=== PATIENT | female | born 1950 | race Two or more races ===

== ENCOUNTER 2021-03-23 09:38 | Inpatient (IN) | payer OTHER ==
[~2021-03-23] VITALS: Ht 157.5 cm; Wt 68.5 kg
--- NOTE | 2021-03-23 09:41 | NUR ---
CODE STROKE ACTIVATED
--- NOTE | 2021-03-23 09:42 | NUR ---
[id number] FRM HOME, FOUND ALTERED BY FRIEND AT 0830. LKW 1930 YESTERDAY WHEN SHE CALLED A FRIEND THATS STATES "SOUNDS NORMAL" BG RIVET HEATER GAS 96. THE PATIENT IS AO X0. RESPIRATION REGULAR AND UNLABORED. ATTACHED TO THE MONITOR.
[2021-03-23] MEDS ORDERED: DEXTROSE 50%-WATER 50 ML DISP.SYRIN ONE ×3 (09:43→20:20)
--- NOTE | 2021-03-23 09:45 | NUR ---
D50 IVP GIVEN AWARE.
[2021-03-23] MEDS ORDERED: DEXTROSE 50%-WATER 50 ML DISP.SYRIN IVP ONE (10:00)
--- NOTE | 2021-03-23 10:07 | NUR ---
accucheck reading is 176
--- NOTE | 2021-03-23 10:13 | NUR ---
PHELBATOMIST AT THE BEDSIDE
--- NOTE | 2021-03-23 10:19 | NUR ---
MADE DR GUAMAN AWARE DR ENRIQUEZ`S RECOMMENDATION TO GIVEN THIAMINE 250 MG IV ONCE, HOWEVER, DR GUAMAN STATED THAT THERE IS NO NEED TO GIVE THIAMINE
--- NOTE | 2021-03-23 10:22 | NUR ---
THE PATIENT IS ALERT AND ORIENTED X1. VERBALLY RESPONSIVE. DENIES PAIN. IN ROOM AIR AND DENIES SOB. RESPIRATION REGULAR AND UNLABORED. WILL CONTINUE TO MONITOR THE PATIENT.
--- NOTE | 2021-03-23 10:37 | NUR ---
THE PATIENT IS ALERT AND ORIENTED X2. ABLE TO MOVE OF EXTREMITIES. NO DEFICIENCY NOTED. REMAINS ATTACHED TO THE MONITOR.
[2021-03-23 10:52] LABS: BASOPHILS % (AUTO) 0.4 % (0.0-2.0); EOSINOPHILS % (AUTO) 0.1 % (0.0-6.0); HEMATOCRIT 34 % (33-45); LYMPHOCYTES % (AUTO) 9.5 % (20.0-44.0); MEAN CORPUSCULAR HGB CONC 33 g/dl (31.0-36.0); MEAN CORPUSCULAR VOLUME 88 fL (82-100); MONOCYTES # (AUTO) 0.3 K/uL (0.1-1.30); MONOCYTES % (AUTO) 3.3 % (2.0-12.0); NEUTROPHILS # (AUTO) 8.7 K/uL (1.8-8.9); NEUTROPHILS % (AUTO) 86.7 % (43.0-81.0); PLATELET COUNT (AUTO) 453 K/uL (150-450); RED BLOOD CELL COUNT(AUTO) 3.84 MIL/uL (4.0-5.2)
--- NOTE | 2021-03-23 11:12 | NUR ---
ACCUCHECK IS 138. DR GUAMAN IS MADE AWARE.
[2021-03-23] MEDS ORDERED: IV D5/0.45 NACL 500 ML IV ONE (11:30)
--- NOTE | 2021-03-23 11:44 | NUR ---
D5 1/2 NS 500 ML IV BOLUS GIVEN VIA LAC G 20 START TIME 1145 END TIME 1215 UNABLE TO DOCUMENT ON eMAR
--- NOTE | 2021-03-23 11:57 | NUR ---
ROOM 311-2
--- NOTE | 2021-03-23 12:03 | NUR ---
REPORT GIVEN TO NURSE RIVAS FOR JULIO
[2021-03-23 12:57] LABS: CALCIUM, SERUM 9.2 mg/dL (8.5-10.1); CARBON DIOXIDE 27 mmol/L (21-32); CHLORIDE 98 mmol/L (98-107); CREATININE 0.8 mg/dL (0.6-1.3); GLUCOSE 145 mg/dL (74-106); POTASSIUM 3.2 mmol/L (3.5-5.1); SODIUM SERUM 137 mmol/L (136-145); UREA NITROGEN, BLOOD 12 mg/dL (7-18)
[2021-03-23 13:03] LABS: ALANINE AMINOTRANSFERASE 27 U/L (12-78); ALBUMIN 3.3 g/dL (3.4-5.0); ALKALINE PHOSPHATASE 69 U/L (46-116); ASPARTATE AMINOTRANSFERASE 36 U/L (15-37); BILIRUBIN,DIRECT 0.1 mg/dL (0.0-0.2); BILIRUBIN,TOTAL 0.3 mg/dL (0.2-1.0); TOTAL PROTEIN, SERUM 7.2 g/dL (6.4-8.2)
--- NOTE | 2021-03-23 13:26 | NUR ---
UNABLE TO TX PT,COVID RESULT STILL PENDING
--- NOTE | 2021-03-23 13:50 | NUR ---
F/U WITH LAB NATATLIE & PER [facility] COVID ANTIGEN TO BE RESULTED IS IN 30 MINUTES.
[2021-03-23] MEDS ORDERED: MAGNESIUM HYDROXIDE 30 ML UDC PO PRN (14:30)
[2021-03-23] MEDS ORDERED: ACETAMINOPHEN 325 MG TABLET PO PRN (14:30)
[2021-03-23] MEDS ORDERED: Z GUARD REMEDY 4 OZ OINT TP PRN (14:30)
[2021-03-23] MEDS ORDERED: IV D5/0.45 NACL 1,000 ML IV ONE (14:30)
[2021-03-23] MEDS ORDERED: ONDANSETRON HCL/PF 4 MG/2 ML VIAL IVP PRN (14:30)
[2021-03-23] MEDS ORDERED: MAG HYDROX/AL HYDROX/SIMETH 30 ML UDC PO PRN (14:30)
[2021-03-23] MEDS ORDERED: ZOLPIDEM TARTRATE 5 MG TABLET PO PRN (14:30)
--- NOTE | 2021-03-23 15:18 | NUR ---
THE PATIENT IS TRANSFERED TO ROOM 311-2 IN STABLE CONDITION AND PER [facility] POLICY.
--- NOTE | 2021-03-23 15:30 | NUR ---
TELE ADMIT FROM ER ADMITTED TO TELE UNIT AFTER REPORT RECEIVED FROM TREASURE RN. PATIENT ORIENTED TO PRIMARY RN, UNIT, ROOM, BED, AND UNIT POLICIES REGARDING PATIENT CARE AND VISITING HOURS. PATIENT NOW ON CONTINUOUS TELEMETRY MONITORING, READING ON ARRIVAL IS SR 71. PATIENT WEIGHED BY BEDSCALE AND ENCOURAGED TO CALL IN THEY NEED ANYTHING. ALL QUESTIONS AND CONCERNS ADDRESSED, PATIENT VERBALIZED UNDERSTANDING.
[2021-03-23] MEDS: POTASSIUM CL. PREMIX PERIPHER. 50 ML IV SCH ×4 (16:04→23:17)
--- NOTE | 2021-03-23 16:30 | NUR ---
CHANGE OF CONDITION PT SAFELY IN BED, LETHARGIC, RESPONDING TO QUESTIONS INAPPROPRIATELY. BLOOD SUGAR ASSESSED TWICE TO BE <[address] HOYOS MADE AWARE. DEXTROSE 25 MG IV PUSH GIVEN. PATIENT BEGAN TO RESPOND TO QUESTIONS APPROPRIATELY, SHORTLY AFTER ADMINISTRATION. WILL CONTINUE TO MONITOR.
[2021-03-23] MEDS: DEXTROSE 50%-WATER 50 ML DISP.SYRIN IVP ONE ×2 (16:31→18:35)
--- NOTE | 2021-03-23 17:30 | NUR ---
REASSESS BS 126
--- NOTE | 2021-03-23 18:30 | NUR ---
CHANGE OF CONDITION PT SAFELY IN BED, LETHARGIC, RESPONDING TO QUESTIONS INAPPROPRIATELY. BLOOD SUGAR ASSESSED TO BE 19. DR HOYOS MADE AWARE. ORDERS RECEIVED. DEXTROSE 25 MG IV PUSH GIVEN. PATIENT BEGAN TO RESPOND TO QUESTIONS APPROPRIATELY, SHORTLY AFTER ADMINISTRATION. WILL CONTINUE TO MONITOR.
--- NOTE | 2021-03-23 19:00 | NUR ---
CHANGE OF SHIFT REPORT PT RESTING COMFORTABLY IN BED. NO S/S OR C/O PAIN OR DISTRESS NOTED. SIDE RAILS UP X2, CALL LIGHT LEFT WITHIN REACH. PT KEPT CLEAN DRY, AND COMFORTABLE. WILL GIVE REPORT TO ALDO DUQUE.
--- NOTE | 2021-03-23 19:36 | NUR ---
DATA SCIENTIST OPENING NOTES RECEIVED PT IN BED, AWAKE, AOx4. ABLE TO MAKE NEEDS KNOWN. ON RA AND TOLERATING WELL. NO SOB NOTED. NO S/SX OF RESPIRATORY DISTRESS NOTED. IV ACCESS IN LAC #20 RUNNING D51/2 NS @ 100 ML/HR AND POTASSIUM CHLORIDE @ 25 ML/HR AND R HAND. TELE MONITOR DETECTS SINUS RHYTHM WITH RATE OF 70S. SAFETY PRECAUTIONS IN PLACE: BED IN LOWEST, LOCKED POSITION, SIDERAILS UPx2, AND BRAKES ON. TABLE AND CALL LIGHT WITHIN REACH. WILL CONTINUE TO MONITOR.
[2021-03-23 20:00] VITALS: BP 96/56
--- NOTE | 2021-03-23 20:25 | NUR ---
BS IS 47 MG/DL. ADMINISTERED D50 PER PROTOCOL Addendum: 03/23/21 at 2031 by LUCILLE SORIA RN WILL CONTINUE TO MONITOR
--- NOTE | 2021-03-23 21:16 | NUR ---
REASSESSED BLOOD SUGAR AND IT WAS 127 MG/DL. WILL CONTINUE TO MONITOR.
[2021-03-23] MEDS: DEXTROSE 50%-WATER 50 ML DISP.SYRIN IVP PRN (21:17)
[2021-03-24] VITALS: BP 112/57
[2021-03-24] MEDS: DEXTROSE 50%-WATER 50 ML DISP.SYRIN IVP PRN ×3 (00:01→10:15)
[2021-03-24] MEDS: BLOOD SUGAR DIAGNOSTIC 1 EACH STRIP IN SCH ×5 (00:02→21:31)
--- NOTE | 2021-03-24 00:02 | NUR ---
BS IS 17 MG/DL. ADMINISTERED D50 PER MD ORDER. WILL CONTINUE TO MONITOR.
--- NOTE | 2021-03-24 00:53 | NUR ---
BS IS 66 MG/DL. WILL ADMINISTER D50 AGAIN. ALSO BEGAN IVF OF D10W PER MD ORDER. WILL CONTINUE TO MONITOR.
[2021-03-24] MEDS: POTASSIUM CL. PREMIX PERIPHER. 50 ML IV SCH ×2 (00:55→02:23)
[2021-03-24] MEDS ORDERED: DEXTROSE 10% IN WATER 250 ML BAG IV PRN (01:00)
--- NOTE | 2021-03-24 01:30 | NUR ---
BS IS 137 MG/DL. WILL CONTINUE TO MONITOR.
[2021-03-24 04:00] VITALS: BP 110/58
--- NOTE | 2021-03-24 06:39 | NUR ---
BLACKTOP PAVER OPERATOR CLOSING NOTES PT IN BED, ASLEEP, AWAKENS TO VERBAL STIMULI. AOx3-4, ABLE TO MAKE NEEDS KNOWN. ON RA AND TOLERATING WELL. NO SOB NOTED. NO S/SX OF RESPIRATORY DISTRESS NOTED. IV ACCESS IN LAC #20 RUNNING D10 @ 125 ML/HR AND R HAND. TELE MONITOR DETECTS SINUS RHYTHM WITH RATE IN 70S. ALL NEEDS MET. PT KEPT CLEAN AND DRY. SAFETY PRECAUTIONS IN PLACE: BED IN LOWEST, LOCKED POSITION, SIDERAILS UPx2, AND BRAKES ON. TABLE AND CALL LIGHT WITHIN REACH. WILL ENDORSE TO ONCOMING SHIFT FOR JULIO.
[2021-03-24 06:48] LABS: BASOPHILS % (AUTO) 0.6 % (0.0-2.0); EOSINOPHILS % (AUTO) 1.3 % (0.0-6.0); HEMATOCRIT 29 % (33-45); HEMOGLOBIN 9.8 g/dL (11.5-14.8); LYMPHOCYTES # (AUTO) 2.5 K/uL (0.8-4.8); LYMPHOCYTES % (AUTO) 41.9 % (20.0-44.0); MEAN CORPUSCULAR HGB CONC 34 g/dl (31.0-36.0); MEAN CORPUSCULAR VOLUME 88 fL (82-100); MONOCYTES # (AUTO) 0.3 K/uL (0.1-1.30); MONOCYTES % (AUTO) 5.4 % (2.0-12.0); NEUTROPHILS # (AUTO) 3.1 K/uL (1.8-8.9); NEUTROPHILS % (AUTO) 50.8 % (43.0-81.0); PLATELET COUNT (AUTO) 381 K/uL (150-450); RED BLOOD CELL COUNT(AUTO) 3.31 MIL/uL (4.0-5.2)
--- NOTE | 2021-03-24 07:30 | NUR ---
SOCIAL WELFARE ADMINISTRATOR OPENING NOTES RECEIVED PT IN BED, AWAKE, A&Ox4. ABLE TO VERBALIZE NEEDS. EQUAL CHEST EXPANSION WITH NO S/S OF RESPIRATORY DISTRESS. NO COMPLAINTS OF PAIN VERBALIZED AT THIS TIME. IV ACCESS IN LAC G#20 RUNNING D51/2 NS @ 100 ML/HR AND POTASSIUM CHLORIDE @ 25 ML/HR AND R HAND. NPO STATUS. TELE MONITOR SHOWS SR 78BPM AT THIS TIME. SAFETY PRECAUTIONS IN PLACE: BED IN LOWEST POSITION WITH WHEELS LOCKED, SIDERAILS UPx2, CALL LIGHT WITHIN REACH. WILL CONTINUE TO MONITOR PATIENT THROUGHOUT SHIFT.
[2021-03-24 08:00] VITALS: BP 132/60
[2021-03-24 08:05] LABS: CALCIUM, SERUM 8.5 mg/dL (8.5-10.1); CREATININE 0.7 mg/dL (0.6-1.3); MAGNESIUM 1.9 mg/dL (1.8-2.4); POTASSIUM 3.7 mmol/L (3.5-5.1)
--- NOTE | 2021-03-24 10:45 | NUR ---
RN MS NOTES CHECKED PT'S BLOOD SUGAR, 26MG/DL, PT IS AWAKE, ALERT AND ORIENTED, NOT COLD OR CLAMMY, NO CHANGE IN LOC, D50 GIVEN ORDERED, REASSESSED AT 142, DR. WISE INFORMED, ORDERED TO START ON REGULAR DIET, WILL CONTINUE TO MONITOR.
[2021-03-24 12:00] VITALS: BP 129/69
[2021-03-24] MEDS ORDERED: DEXTROSE 50%-WATER 50 ML DISP.SYRIN IVP PRN (15:30)
[2021-03-24 16:00] VITALS: BP 123/79
--- NOTE | 2021-03-24 17:25 | NUR ---
RN NOTES CHECKED PT'S BLOOD SUGAR, 64MG/DL, PT IS AWAKE, ALERT AND ORIENTED, NOT COLD OR CLAMMY, NO CHANGE IN LOC. GAVE ORANGE JUICE AND APPLESAUCE, WILL RECHECK BS.
--- NOTE | 2021-03-24 17:58 | NUR ---
RN NOTES RE CHECKED BLOOD SUGAR, IT IS CURRENTLY 134MG/DL. WILL CONTINUE TO MONITOR PATIENT.
--- NOTE | 2021-03-24 18:43 | NUR ---
DEEP WELL CONTRACTOR CLOSING NOTES PATIENT IN BED, AWAKE, A&Ox4. ABLE TO VERBALIZE NEEDS. EQUAL CHEST EXPANSION WITH NO S/S OF RESPIRATORY DISTRESS. NO COMPLAINTS OF PAIN VERBALIZED AT THIS TIME. LAC G#20 AND R HAND IV ACCESS INTACT AND PATENT. BRP, USES BSC. TELE MONITOR SHOWS SR 76BPM AT THIS TIME. NO FLUIDS RUNNING AT THIS TIME. CONTINUE TO MONITOR BLOOD SUGAR FOR HYPOGLYCEMIA. SAFETY PRECAUTIONS IN PLACE: BED IN LOWEST POSITION WITH WHEELS LOCKED, SIDERAILS UPx2, CALL LIGHT WITHIN REACH. WILL ENDORSE TO RETAIL PERFORMANCE COACH NURSE FOR JULIO.
--- NOTE | 2021-03-24 19:48 | NUR ---
RN OPENING NOTE PATIENT IN BED, AWAKE. A/O X 4, ABLE TO MAKE NEEDS KNOWN. TELE MONITOR READS 80 BPM. PATIENT'S IV ACCESS PATENT AND INTACT. NO IVF RUNNING. PATIENT NO COMPLAINS OF PAIN AT THIS TIME. SAFETY MEASURES IN PLACE: BED LOCKED AND IN LOWEST POSITION, CALL LIGHT WITHIN REACH, SIDE RAILS UP. WILL MONITOR PATIENT CLOSELY.
[2021-03-24 20:00] VITALS: BP 122/60
--- NOTE | 2021-03-24 22:00 | NUR ---
DUNIA NOTE BS 157 MG DL, WILL MONITOR FOR HYPO/HYPERGLYCEMIA Addendum: 03/25/21 at 0356 by LUCIO BRENNAN RN NO COVERAGE GIVEN
[2021-03-25] VITALS: BP_SYST 118; BP_SYST 125; BP_DIAS 57; BP_DIAS 67
[2021-03-25 04:00] VITALS: BP 120/90
[2021-03-25] MEDS: BLOOD SUGAR DIAGNOSTIC 1 EACH STRIP IN SCH ×4 (06:34→21:59)
[2021-03-25 06:48] LABS: CALCIUM, SERUM 9.2 mg/dL (8.5-10.1); CREATININE 0.8 mg/dL (0.6-1.3); POTASSIUM 4.1 mmol/L (3.5-5.1)
--- NOTE | 2021-03-25 07:19 | NUR ---
RN CLOSING NOTE PATIENT IN BED, AWAKE. NO SIGNIFICANT CHANGES IN CONDITION. INITIAL BS 84 MG/DL, GIVEN PUDDING AND JUICE, RECHECKED 30 MIN LATER IT WAS 124 MG/DL. PATIENT STABLE ON RA 94-95%. NO COMPLAINS OF PAIN AT THIS TIME. SAFETY MEASURES MAINTAINED. ALL NEEDS MET AND ATTENDED. ALL ORDERS CARRIED OUT. ENDORSED TO DAY SHIFT NURSE FOR JULIO.
--- NOTE | 2021-03-25 07:25 | NUR ---
SUMMER CAMP COUNSELOR OPENING NOTES RECEIVED PATIENT IN BED WITH EYES CLOSED, ABLE TO BE WAKEN. A&Ox4. ABLE TO VERBALIZE NEEDS. EQUAL CHEST EXPANSION WITH NO S/S OF RESPIRATORY DISTRESS. NO COMPLAINTS OF PAIN VERBALIZED AT THIS TIME. IV ACCESS IN LAC G#20 AND R HAND INTACT AND PATENT. TELE MONITOR SHOWS SR 74 BPM AT THIS TIME. SAFETY PRECAUTIONS IN PLACE: BED IN LOWEST POSITION WITH WHEELS LOCKED, SIDE RAILS UPx2, CALL LIGHT WITHIN REACH. WILL CONTINUE TO MONITOR PATIENT THROUGHOUT SHIFT.
[2021-03-25 08:00] VITALS: BP 115/71
[2021-03-25] MEDS ORDERED: DEXTROSE 50%-WATER 50 ML DISP.SYRIN IV PRN (15:00)
[2021-03-25 16:00] VITALS: BP 149/93
[2021-03-25] MEDS: INSULIN REGULAR, HUMAN 100 UNIT/ML 3 ML VIAL SQ PRN ×2 (17:58→22:07)
--- NOTE | 2021-03-25 19:03 | NUR ---
RN CLOSING NOTES PATIENT IN BED AWAKE, A&Ox4. ABLE TO VERBALIZE NEEDS. EQUAL NO S/S OF RESPIRATORY DISTRESS. NO COMPLAINTS OF PAIN VERBALIZED AT THIS TIME. IV ACCESS IN LAC G#20 AND R HAND INTACT AND PATENT. SAFETY PRECAUTIONS IN PLACE: BED IN LOWEST POSITION WITH WHEELS LOCKED, SIDE RAILS UP X2, CALL LIGHT WITHIN REACH. NEW SLIDING SCALE ORDER FOLLOWED. HEMATURIA WAS NOTED DURING URINATION, DR MCELROY WAS NOTIFIED. UA AND ULTRASOUND WERE OBTAINED. ALL ORDERS CARRIED OUT. WILL ENDORSE TO FIRE MANAGEMENT TECHNICIAN NURSE FOR JULIO.
--- NOTE | 2021-03-25 19:30 | NUR ---
RN OPENING NOTE PATIENT IN BED, AWAKE. A/O X 4, ABLE TO MAKE NEEDS KNOWN. PATIENT'S IV ACCESS PATENT AND INTACT. NO IVF RUNNING. PATIENT AMBULATED TO BATHROOM WITH ASSIST. PATIENT NO COMPLAINS OF PAIN AT THIS TIME. SAFETY MEASURES IN PLACE: BED LOCKED AND IN LOWEST POSITION, CALL LIGHT WITHIN REACH, SIDE RAILS UP. WILL MONITOR PATIENT CLOSELY.
[2021-03-25 20:00] VITALS: BP 139/76
[2021-03-25 20:29] LABS: BILIRUBIN,URINE NEGATIVE (NEGATIVE); COLOR,URINE RED (YELLOW); LEUKOCYTE ESTERASE ,URINE SMALL (NEGATIVE); NITRITE, URINE POSITIVE (NEGATIVE); PH,URINE 8.5 (5.0-8.0); PROTEIN,URINE 30 mg/dl (NEGATIVE); UGLUCOSE NEGATIVE (NEGATIVE); UROBILINOGEN,URINE 0.2 EU/dL (0.2)
[2021-03-25 20:35] LABS: RBC,URINE TOO NUMEROUS TO COUN /HPF (0-2)
[2021-03-25 20:36] LABS: BACTERIA,URINE Few /HPF (None Seen); SQUAMOUS EPITHELIAL CELL,UR Few /HPF (None Seen)
--- NOTE | 2021-03-25 22:00 | NUR ---
RN NOTE BS 163 MG/DL, 3 UNITS REG INSULIN GIVEN FOR COVERAGE, SNACKS PROVIDED. WILL MONITOR PATIENT FOR HYPOGLYCEMIA.
[2021-03-26 06:08] LABS: BASOPHILS % (AUTO) 0.7 % (0.0-2.0); EOSINOPHILS % (AUTO) 1.9 % (0.0-6.0); HEMATOCRIT 32 % (33-45); HEMOGLOBIN 10.6 g/dL (11.5-14.8); LYMPHOCYTES # (AUTO) 2.2 K/uL (0.8-4.8); LYMPHOCYTES % (AUTO) 31.7 % (20.0-44.0); MEAN CORPUSCULAR HGB CONC 34 g/dl (31.0-36.0); MEAN CORPUSCULAR VOLUME 87 fL (82-100); MONOCYTES # (AUTO) 0.4 K/uL (0.1-1.30); MONOCYTES % (AUTO) 5.8 % (2.0-12.0); NEUTROPHILS # (AUTO) 4.2 K/uL (1.8-8.9); NEUTROPHILS % (AUTO) 59.9 % (43.0-81.0); PLATELET COUNT (AUTO) 376 K/uL (150-450); RED BLOOD CELL COUNT(AUTO) 3.61 MIL/uL (4.0-5.2)
--- NOTE | 2021-03-26 07:20 | NUR ---
MS RN OPENING NOTES RECEIVED PT IN BED ASLEEP, EASY TO AROUSE. ALERT AND ORIENTED X4. NO S/SX OF DISTRESS NOTED. NO SOB. BREATHING EVEN AND UNLABORED, TOLERATING WELL ON ROOM AIR. IV ACCESS ON LAC #20 INTACT AND PATENT. SAFETY MEASURE IN PLACE WITH BED LOCKED AND IN LOWEST POSITION, SR UP X2, CALL LIGHT PLACED WITHIN EASY REACH. WILL CONTINUE TO MONITOR PT FOR CHANGES IN CONDITION.
[2021-03-26] MEDS: BLOOD SUGAR DIAGNOSTIC 1 EACH STRIP IN SCH ×4 (07:33→21:10)
--- NOTE | 2021-03-26 07:34 | NUR ---
RN CLOSING NOTE BS 124 NO COVERAGE GIVEN PER SLIDING SCALE. PATIENT STILL HAVING HEMATURIA. ENDORSED TO DAY SHIFT NURSE FOR JULIO.
[2021-03-26 08:00] VITALS: BP 130/64
--- NOTE | 2021-03-26 11:47 | NUR ---
RN NOTE PT BS 144, REFUSED INSULIN AT THIS TIME.
[2021-03-26] MEDS: CEFTRIAXONE 1 G in IV D5W 50 ML IV SCH (12:34)
[2021-03-26 16:00] VITALS: BP 127/65
[2021-03-26] MEDS: INSULIN REGULAR, HUMAN 100 UNIT/ML 3 ML VIAL SQ PRN ×2 (18:21→21:42)
--- NOTE | 2021-03-26 19:20 | NUR ---
MS/RN OPENING NOTE RECEIVED PATIENT RESTING IN BED. AWAKE, ALERT AND ORIENTED X 4. ABLE TO MAKE NEEDS KNOWN. DENIES PAIN AT THIS TIME. CONTINUES ON ROOM AIR WITH NO S/SX OF RESPIRATORY DISTRESS NOTED. IV ACCESS TO LEFT AC #20G AND RIGHT HAND #22G BOTH INTACT, PATENT AND SALINE LOCKED. NO HEMATURIA NOTED AT THIS TIME PER PATIENT. CALL LIGHT WITHIN REACH. ASPIRATION, FALL AND SAFETY PRECAUTIONS MAINTAINED. WILL CONTINUE TO MONITOR.
--- NOTE | 2021-03-26 19:30 | NUR ---
MS/RN OPENING NOTE RECEIVED PATIENT SLEEPING IN BED. ALERT AND ORIENTED X 2. ABLE TO MAKE NEEDS KNOWN. DENIES PAIN AT THIS TIME. CONTINUES ON ROOM AIR WITH NO S/SX OF RESPIRATORY DISTRESS NOTED. IV ACCESS TO RIGHT HAND #22G INTACT, PATENT AND SALINE LOCKED. CONTINUES ON SOFT DIET WITH NO S/SX OF ASPIRATION NOTED. LANZA CATHETER IN PLACE DRAINING CLEAR, YELLOW URINE TO GRAVITY. CALL LIGHT WITHIN REACH. ASPIRATION, FALL AND SAFETY PRECAUTIONS MAINTAINED. WILL CONTINUE TO MONITOR. Addendum: 03/26/21 at 2018 by ADDISON EASON RN WRONG PATIENT.
[2021-03-26 20:00] VITALS: BP 137/67
[2021-03-27] MEDS: BLOOD SUGAR DIAGNOSTIC 1 EACH STRIP IN SCH ×3 (06:19→17:55)
--- NOTE | 2021-03-27 06:23 | NUR ---
MS/RN NOTE PATIENTS BLOOD SUGAR THIS AM IS 151. PATIENT REFUSING SLIDING SCALE. DOESN'T FEEL LIKE SHE NEEDS IT. RISKS/BENEFITS OF REFUSAL EXPLAINED. WILL CONTINUE TO MONITOR.
--- NOTE | 2021-03-27 06:30 | NUR ---
MS/RN CLOSING NOTE PATIENT CURRENTLY RESTING IN BED. AWAKE, ALERT AND ORIENTED X 4. ABLE TO MAKE NEEDS KNOWN. DENIES PAIN AT THIS TIME. CONTINUES ON ROOM AIR WITH NO S/SX OF RESPIRATORY DISTRESS NOTED. IV ACCESS TO LEFT WRIST #22G INTACT, PATENT AND SALINE LOCKED. NO HEMATURIA NOTED AT THIS TIME PER PATIENT. CALL LIGHT WITHIN REACH. ASPIRATION, FALL AND SAFETY PRECAUTIONS MAINTAINED. WILL ENDORSE PLAN OF CARE TO ONCOMING SHIFT.
--- NOTE | 2021-03-27 07:15 | NUR ---
MS RN OPENING NOTES RECEIVED PATIENT ON BED, AWAKE, VERBALLY RESPONSIVE. A/O X4. ON ROOM AIR, NO SOB NOTED, BREATHING EVEN AND UNLABORED. IV ACCESS ON LEFT WRIST INTACT AND PATENT, SL. NO C/O PAIN OR DISCOMFORT AT THIS TIME. SAFETY MEASURES IN PLACE. BED LOCKED AND IN LOWEST POSITION, SR UP X2, CALL LIGHT PLACED WITHIN EASY REACH. WILL CONTINUE TO MONITOR.
[2021-03-27 08:17] VITALS: BP 127/69
[2021-03-27] MEDS: INSULIN REGULAR, HUMAN 100 UNIT/ML 3 ML VIAL SQ PRN ×2 (12:03→17:57)
[2021-03-27] MEDS: CEFTRIAXONE 1 G in IV D5W 50 ML IV SCH (12:43)
[2021-03-27] MEDS ORDERED: CEFT1FRO2 IV (14:59)
[2021-03-27] MEDS ORDERED: INSU100V28 SQ (14:59)
[2021-03-27] MEDS ORDERED: Blood Sugar Diagnostic IN (14:59)
[2021-03-27 15:45] VITALS: BP 121/68
--- NOTE | 2021-03-27 19:00 | NUR ---
MS RN CLOSING NOTES PATIENT ON BED, AWAKE, VERBALLY RESPONSIVE. A/O X4. REMAINS ON ROOM AIR, NO SOB NOTED, BREATHING EVEN AND UNLABORED. IV ACCESS ON LEFT WRIST INTACT AND PATENT, SL. NO C/O PAIN OR DISCOMFORT AT THIS TIME. NO S/SX OF HYPO/HYPERGLYCEMIA NOTED. ALL DUE MEDS GIVEN TOLERATED WELL. WILL BE TRANSFERRED TO [facility]. REPORT GIVEN TO JACINTO DUQUE. SAFETY MEASURES IN PLACE. BED LOCKED AND IN LOWEST POSITION, SR UP X2, CALL LIGHT PLACED WITHIN EASY REACH.ENDORSED TO NEXT SHIFT.
--- NOTE | 2021-03-27 20:45 | NUR ---
MS RN NOTES PT PICKED UP VIA AMBULANCE ACCOMPANIED BY TWO CHEMISTRY ASSOCIATE VITAL SIGNS STABLE ALL DOCUMENTATION GIVEN TO EMT.
== END 2021-03-27 20:40 | DRG 637 ==
LOC: ER 09:41 → TELE 12:07 → MED 03-25 16:37
PROVIDERS: ADMIT Family Medicine; ATTEND Nurse Practitioner Acute Care
DX: E11.649 Type 2 diabetes mellitus with hypoglycemia without coma (principal); G93.41 Metabolic encephalopathy; E44.0 Moderate protein-calorie malnutrition; N39.0 Urinary tract infection, site not specified; E87.6 Hypokalemia; Z20.822 Contact with and (suspected) exposure to COVID-19; D64.9 Anemia, unspecified; T50.905A Adverse effect of unspecified drugs, medicaments and biological substances, initial encounter; Y92.009 Unspecified place in unspecified non-institutional (private) residence as the place of occurrence of the external cause; R31.9 Hematuria, unspecified; B96.89 Other specified bacterial agents as the cause of diseases classified elsewhere; Z79.4 Long term (current) use of insulin
CPT/HCPCS: 36415; 70450-TC; 70496-TC; 70498-TC; 71045-TC; 76856-TC; 80048-TC; 80061-TC; 80076-TC; 81001; 82962-TC; 83605-TC; 83735-TC; 84100-TC; 84484-TC; 85025-TC; 85730-TC; 86850-TC; 87040-TC; 87081-TC; 87086-TC; 97116-TC; 97530-TC; G0378; J0696; J1815; J3480; J3490; J7060